=== PATIENT | female | born 2000 | race Hispanic/Latino ===

== ENCOUNTER 2023-02-12 00:36 | Emergency (ER) | payer OTHER, SELFPAY ==
[2023-02-12 00:49] VITALS: BP 121/71; PULSE 98; RESP 16; TEMP 36.9; O2SAT 100
[2023-02-12 01:01] LABS: Appearance Urine Cloudy (Clear); Bacteria Urine 1+ /hpf; Bilirubin Urine Negative (Negative); Blood Urine 1+ (Negative); Color Urine Yellow (Yellow); Glucose Urine UA Negative (Negative); Ketones Urine Negative (Negative); Leukocyte Esterase Ur 3+ LEU/UL (Negative); Nitrate Urine Negative (Negative); Non Pathogenic Casts 0-2; Protein Urine Trace mg/dL (Negative); RBC Urine 0-2 /hpf (0-2); Specific Grav Ur 1.009 (1.001-1.035); Squamous Epithelial Cell Urine Few /hpf (Few); Urobilinogen Urine 0.2 mg/dL (<2.0); WBC Urine 51-100 /hpf
[2023-02-12] MEDS: KETOROLAC 30 MG/ML VIAL (*BKC) IM (01:07)
[2023-02-12 01:08] LABS: Add Urine Microscopic? YES
--- NOTE | 2023-02-12 01:18 | ED.FEMALEGU ---
HPI - Female Genitourinary General Chief complaint: Urogenital-Female Stated complaint: low back pain, burning with urination Time Seen by Provider: 02/12/23 00:51 History of Present Illness HPI Narrative: This is a 22-year-old female, who denies past medical history, presenting to the emergency department complaining of burning with urination for the past 5 days and back pain for the past 2 days. She describes the pain as dull, constant, initially present on the right though now present on the left without aggravating or alleviating factors. She states the pain does not radiate. She denies fevers, nausea, vomiting or blood in urine. Related Data Allergies Allergy/AdvReac Type Severity Reaction Status Date / Time No Known Allergies Allergy Mild Verified 02/12/23 00:57 Review of Systems Review of Systems: CONSTITUTIONAL: Denies fever, chills, or sweats. CARDIOVASCULAR: Denies chest pain, palpitations, or edema. RESPIRATORY: Denies cough or dyspnea. GASTROINTESTINAL: Denies abdominal pain, nausea, vomiting, or diarrhea. GENITOURINARY: Dysuria, last menstrual period 3 weeks ago denies hematuria. SKIN: Denies rash or itching. MUSCULOSKELETAL: Left-sided back pain denies joint pain, or myalgia. NEUROLOGIC: Denies headache, numbness, dizziness, or weakness. PSYCHIATRIC: Denies anxiety or depression. [facility] Past Medical History Medical History (Updated 02/12/23 @ 01:23 by Irwin Lin MD) No significant past medical history Surgical History Surgical History (Updated 02/12/23 @ 01:23 by Irwin Lin MD) No significant past surgical history Social History Social History (Updated 02/12/23 @ 01:23 by Irwin Lin MD) Smoking status: Never smoker Alcohol intake: current Drinks per week: 2 Substance use: never Gender identity (if verbalized by the patient): Female Exam Narrative: GENERAL: Well-developed, well-nourished, and in no acute distress. HEAD: Normocephalic, atraumatic. EYES: PERRLA and EOMI. CHEST: Clear to auscultation. No respiratory distress. No wheezes rales or rhonchi HEART: Regular rate and rhythm. No murmur heard. Normal peripheral pulses. ABDOMEN: Soft, nontender, nondistended, normal active bowel sounds. Left CVA tenderness to palpation, no right CVA tenderness EXTREMITIES: Normal range of motion. No edema. SKIN: Warm, dry, no rash. NEURO: Alert and oriented x3. Moving all 4 limbs purposefully. PSYCH: Normal mood and affect. Course Course Emergency Course: 01:20 - UA consistent with UTI (white blood cells and leukocyte esterase. There are 0-2 RBCs and no other changes concerning for stone. I suspect pyelonephritis. My suspicion for kidney stone is low at this time. The patient received IM Toradol but has not yet had the pain relief. Will reevaluate shortly with plan for oral antibiotics and primary care follow-up. 02:20 - On reevaluation, the patient states her pain is improved. Will discharge with antibiotics. Discussed return and emergency precautions including signs/symptoms of acute abdomen and intractable vomiting. The patient voiced understanding and is comfortable with the plan. All questions answered to her satisfaction. Vital Signs Vital signs: Vital Signs Temperature 98.5 F 02/12/23 00:49 Pulse Rate 98 02/12/23 00:49 Respiratory Rate 16 02/12/23 00:49 Blood Pressure 121/71 02/12/23 00:49 Pulse Oximetry 100 10 00:49 Temperature 98.5 F 02/12/23 00:49 Pulse Rate 98 02/12/23 00:49 Respiratory Rate 16 02/12/23 00:49 Blood Pressure 121/71 02/12/23 00:49 Pulse Oximetry 100 02/12/23 00:49 MDM - Female Genitourinary MDM Narrative Medical decision making narrative: Plan: Labs, test, pain control, reassess Differential Diagnosis Differential diagnosis: Likely urinary tract infection and other (Pyelonephritis, , nephrolithiasis, other) Lab Data Labs: Lab Results
[2023-02-12] MEDS: SULFAMETHOXAZOLE/TRIMETHOPRIM 800/160 MG DS TABLET 1 TAB PO (02:47)
== END 2023-02-12 02:50 | disposition home or self-care (01) ==
PROVIDERS: Emergency Provider Preventive Medicine Aerospace Medicine
DX: N12 Tubulo-interstitial nephritis, not specified as acute or chronic (principal)
CPT/HCPCS: 81001; 81025; 87077; 87086; 87088; 96372; 99283; A9270; J1885

== ENCOUNTER 2024-10-03 10:46 | Emergency (ER) | payer OTHER, SELFPAY ==
--- NOTE | 2024-10-03 10:47 | ED_ITS ---
HPI - General Adult General Chief complaint: Extremity Problem,Nontraumatic Stated complaint: LT Foot infection Time Seen by Provider: 10/03/24 10:55 Source: patient, RN notes reviewed and old records reviewed Mode of arrival: ambulatory Limitations: no limitations History of Present Illness HPI narrative: 23-year-old female presents to the [facility] with irritation, peeling skin between all of the toes of the left foot. States it started about 2-3 weeks ago. States that she had a pedicure 1 month ago. Tried doing some type of cream 2 days ago, has not had any relief. Related Data Home Medications ?Medication ?Instructions ?Recorded ?Confirmed ?Last Taken ?Type drospirenone 3 mg-ethinyl tablet 10/03/24 Unknown History estradiol 0.02 mg tablet (Loryna (28)) Allergies Allergy/AdvReac Type Severity Reaction Status Date / Time No Known Allergies Allergy Mild Verified 10/03/24 11:06 Review of Systems Review of Systems: All systems reviewed & are unremarkable except as noted in HPI and below Constitutional: Constitutional: Reports no additional constitutional complaints ENT: Reports system reviewed and no additional complaints, except as documented Cardiovascular: Cardiovascular: Reports no additional cardiovascular complaints, Denies chest pain and Denies dyspnea Respiratory: Respiratory: Reports no additional respiratory complaints, Denies chest congestion, Denies cough and Denies dyspnea Musculoskeletal: Musculoskeletal: Reports no additional musculoskeletal complaints Integumentary/Breasts: Skin/Breast: Reports as per [facility] Past Medical History Medical History No significant past medical history Surgical History Surgical History No significant past surgical history Social History Social History Smoking status: Never smoker Alcohol intake: current Drinks per week: 2 Substance use: never Gender identity (if verbalized by the patient): Female Comments At the time of my signature, I reviewed and agree with the nursing past medical, surgical, social, and family history. There is no relevant family history pertinent to the patient complaint. Exam Const: General: cooperative, healthy appearing, comfortable, no acute distress, well developed, alert and well nourished Nutritional Appearance: well nourished Orientation/consciousness: patient oriented x3 Limitations: no limitations HENMT: Head: normal to inspection Eyes: General: appearance normal, both eyes and all related structures Alignment and Position: alignment normal Neck: Neck: normal visual inspection, full ROM, no lymphadenopathy and no meningeal signs Chest: Chest palpation & inspection: normal inspection of the chest Resp: Effort & Inspection: normal respiratory effort and able to speak in complete sentences Cardio: Rate: regular rate Skin: General skin exam: normal color and no rashes or lesions noted Other: Moist, peeling skin between all 5 toes. Neuro: General: patient oriented x3, gait normal, moves all extremities and no meningeal signs Cognition (Neuro): normal cognition Speech: normal speech Gait exam (Neuro): Normal gait present Extrem: General: normal to inspection, full ROM, capillary refill normal and normal gait Psych: Appearance: grossly normal and well kempt Mental Status: mental sta tus grossly normal Speech and movement: Normal speech and movement present and Clear speech present Affect: normal affect Attitude: cooperative Course Course Level of Care: Express Care Visit Vital Signs Vital signs: Vital Signs Temperature 97.5 F L 10/03/24 10:54 Pulse Rate 113 H 10/03/24 10:54 Respiratory Rate 18 10/03/24 10:54 Blood Pressure 125/70 10/03/24 10:54 Pulse Oximetry 100 10/03/24 10:54 Oxygen Delivery Room Air 10/03/24 10:54 Temperature 97.5 F L 10/03/24 10:54 Pulse Rate 113 H 10/03/24 10:54 Respiratory Rate 18 10/03/24 10:54 Blood Pressure 125/70 10/03/24 10:54 Pulse Oximetry 100 10/03/24 10:54 Oxygen Delivery Room Air 10/03/24 10:54 Reviewed Medical Decision Making MDM Narrative Medical decision making narrative: Patient sitting comfortably in exam room. Nontoxic, vitals stable. Patient in no acute distress Patient presents for dry moist, irritated skin, peeling between toes On left foot Exam consistent with athlete's foot, discussed [id number] treatments Discharge instructions reviewed with patient, as well as provided in writing per nursing staff. The instructions also include specific and strict return/GO TO THE ER as well as f/u information. All questions have been answered, and the patient deny any further questions with discharge and discharge plan. Some parts of this dictation were generated by voice recognition software and may contain typographical and/or grammatical inaccuracies. Differential Diagnosis Differential Diagnosis: Skin yeast infection, cellulitis Medical Records Medical records reviewed: Yes I reviewed the external patient's medical records. Vital Signs Vital Signs: Vital Signs Temperature 97.5 F L 10/03/24 10:54 Pulse Rate 113 H 10/03/24 10:54 Respiratory Rate 18 10/03/24 10:54 Blood Pressure 125/70 10/03/24 10:54 Pulse Oximetry 100 10/03/24 10:54 Oxygen Delivery Room Air 10/03/24 10:54 Temperature 97.5 F L 10/03/24 10:54 Pulse Rate 113 H 10/03/24 10:54 Respiratory Rate 18 10/03/24 10:54 Blood Pressure 125/70 10/03/24 10:54 Pulse Oximetry 100 10/03/24 10:54 Oxygen Delivery Room Air 10/03/24 10:54 Reviewed Lab Data Lab results reviewed: Yes I reviewed the patient's lab results. Labs: Reviewed Critical Care Time Critical Care Time Critical Care Time: No Discharge Plan Discharge Clinical Impression: Athlete's foot on left Patient Disposition: Home Condition: Stable Instructions: Skin Yeast Infection (ED) Additional Instructions: Soak the foot twice daily in warm soapy water with Epson salts. Soak for 10 minutes. Pat dry thoroughly. Apply the topical cream. Athlete's foot can take 2-4 weeks to heal Follow-up with primary care provider For new or worsening symptoms go directly to the emergency room Patient Language: Croatian Prescriptions: New clotrimazole 1 % cream 1 applic topical BID 28 Days Qty: 45 0RF No Action ondansetron HCl [Zofran] 4 mg tablet 4 mg PO Q6H PRN (Reason: nausea and vomiting) Qty: 4 0RF drospirenone-ethinyl estradiol [Loryna (28)] 3-0.02 mg tablet Follow-up/Referrals: UNKNOWN,DOCTOR [Non-Staff] - Stand Alone Forms: Work/School Release IP Time of Disposition: 11:07
[2024-10-03 10:54] VITALS: BP 125/70; PULSE 113; RESP 18; TEMP 36.4; O2SAT 100
== END 2024-10-03 11:15 | disposition home or self-care (01) ==
PROVIDERS: Emergency Provider Nurse Practitioner
DX: B35.3 Tinea pedis (principal)
CPT/HCPCS: 99213; G0463